=== PATIENT | male | born 1955 | race Caucasian/White ===

== ENCOUNTER 2017-01-28 11:57 | Emergency (ER) | payer BC ==
[~2017-01-28] VITALS: Ht 175.3 cm; Wt 99.7 kg
[~2017-01-28 11:57] MED LIST: ADVAIR 100/501 DISK IH; ERYTHROMYC1 APPLICAT RIGHT EYE; LIPITOR40 MG PO; MONTELUKAST SOD10 MG PO; VENTOLIN HFA18 GM
[2017-01-28 13:33] LABS: EOSINOPHIL (%) 4.5 % (0-5); EOSINOPHIL COUNT 0.3 K/uL (0-0.3); HEMATOCRIT 44.5 % (38.0-50.0); IMMATURE GRANULOCYTE (%) 0.5 % (0.0-0.7); INSTRUMENT ABS NEUTROPHIL CT 3.3 K/uL; LYMPHOCYTE COUNT 2.1 K/uL (1.0-2.8); MCH 31.8 PG (29.0-34.0); MCHC 34.6 G/DL (30.0-36.0); MCV 91.9 FL (86-99); MEAN PLAT.VOLUME 10.8 uM^3 (9.0-12.4); MONOCYTE (%) 10.1 % (3-12); MONOCYTE COUNT 0.7 K/uL (0-0.8); NEUTROPHIL (%) 51.7 % (45-76); NEUTROPHIL COUNT 3.3 K/uL (1.8-6.4); PLATELET COUNT 174 K/uL (156-360); RBC DIS.WIDTH-CV 12.5 % (11.8-14.6); RBC DIS.WIDTH-SD 41.7 % (39-53); RED BLOOD COUNT 4.84 M/uL (4.00-5.50); WHITE BLOOD COUNT 6.4 K/uL (4.1-10.2)
[2017-01-28 14:54] LABS: CHLORIDE 108 mEq/L (99-109); POTASSIUM 4.2 mEq/L (3.7-5.4); SODIUM 141 mEq/L (136-147)
[2017-01-28 14:55] LABS: GLUCOSE 98 mg/dL (70-99)
[2017-01-28 14:57] LABS: ANION GAP 7 MEQ/L (2-14)
[2017-01-28 14:59] LABS: GFR ESTIMATE (CALCULATED) > 59 mL/min/
[2017-01-28 15:00] LABS: UREA NITROGEN (BUN) 17 mg/dL (9-23)
[2017-01-28] MEDS ORDERED: AMITRIPTYLINE H10 MG PO (15:37)
[2017-01-28] MEDS ORDERED: FIORICET,ESG1 TABLET PO (15:37)
[2017-01-28 15:50] VITALS: BP 148/89
== END 2017-01-28 15:52 | disposition home or self-care (01) ==
LOC: RME 11:57 → EME 11:57 → RME 15:52
PROVIDERS: Physician Assistant
DX: R20.0 Anesthesia of skin (principal); R51 Headache; E78.5 Hyperlipidemia, unspecified; J45.909 Unspecified asthma, uncomplicated
CPT/HCPCS: 70450; 80048; 85025; 93005; 99281; 99284

== ENCOUNTER 2017-05-18 09:53 | Observation (INO) | payer BC ==
[~2017-05-18] VITALS: Ht 177.8 cm; Wt 101.1 kg
[~2017-05-18 09:53] MED LIST changes: +AMITRIPTYLINE H10 MG PO; +FIORICET,ESG1 TABLET PO; -VENTOLIN HFA18 GM; +VENTOLIN HFA18 GM IH
[2017-05-18 10:58] LABS: MCH 32.5 PG (29.0-34.0); MCHC 34.4 G/DL (30.0-36.0); MCV 94.3 FL (86-99); MEAN PLAT.VOLUME 10.9 uM^3 (9.0-12.4); PLATELET COUNT 170 K/uL (156-360); RBC DIS.WIDTH-CV 12.6 % (11.8-14.6); RBC DIS.WIDTH-SD 43.4 % (39-53); RED BLOOD COUNT 4.77 M/uL (4.00-5.50); WHITE BLOOD COUNT 7.6 K/uL (4.1-10.2)
[2017-05-18 11:06] LABS: CHLORIDE 108 mEq/L (99-109); POTASSIUM 4.5 mEq/L (3.7-5.4); SODIUM 137 mEq/L (136-147)
[2017-05-18 11:08] LABS: GLUCOSE 112 mg/dL (70-99)
[2017-05-18 11:09] LABS: ANION GAP 6 MEQ/L (2-14)
[2017-05-18 11:10] LABS: TOTAL BILIRUBIN 0.9 mg/dL (0.0-1.0)
[2017-05-18 11:11] LABS: ALKALINE PHOSPHATASE 73 IU/L (3-129)
[2017-05-18 11:12] LABS: GFR ESTIMATE (CALCULATED) > 59 mL/min/
[2017-05-18 11:13] LABS: UREA NITROGEN (BUN) 15 mg/dL (9-23)
[2017-05-18 11:17] LABS: TROP-I INTERPRETATION NEGATIVE; TROPONIN-I < 0.01 ng/mL (0.0-0.30)
[2017-05-18] MEDS ORDERED: MOBIC7.5 MG PO (13:52)
[2017-05-18] MEDS ORDERED: GABAPENTIN100 MG PO (13:52)
[2017-05-18] MEDS ORDERED: PROPRANOLOL HCL60 MG PO (13:53)
[2017-05-18] MEDS ORDERED: ALEVE220 MG PO (13:53)
[2017-05-18 15:44] VITALS: BP 155/83
[2017-05-18 17:12] LABS: TROP-I INTERPRETATION NEGATIVE; TROPONIN-I < 0.01 ng/mL (0.0-0.30)
[2017-05-18 20:31] VITALS: BP 144/81
[2017-05-18 23:31] LABS: TROP-I INTERPRETATION NEGATIVE; TROPONIN-I < 0.01 ng/mL (0.0-0.30)
[2017-05-19 00:08] VITALS: BP 131/75
[2017-05-19 04:04] VITALS: BP 158/86
[2017-05-19 05:42] LABS: HEMATOCRIT 43.3 % (38.0-50.0); MCH 32.8 PG (29.0-34.0); MCHC 34.4 G/DL (30.0-36.0); MCV 95.4 FL (86-99); MEAN PLAT.VOLUME 11.4 uM^3 (9.0-12.4); PLATELET COUNT 145 K/uL (156-360); RBC DIS.WIDTH-CV 12.9 % (11.8-14.6); RBC DIS.WIDTH-SD 45.2 % (39-53); RED BLOOD COUNT 4.54 M/uL (4.00-5.50); WHITE BLOOD COUNT 6.4 K/uL (4.1-10.2)
[2017-05-19 06:06] LABS: ANION GAP 7 MEQ/L (2-14); CHLORIDE 106 MEQ/L (99-109); GFR ESTIMATE (CALCULATED) > 59 mL/min/; GLUCOSE 104 mg/dL (70-99); POTASSIUM 4.3 MEQ/L (3.7-5.4); SAMPLE HEMOLYSIS CHECK 0; SAMPLE ICTERIC CHECK 0; SAMPLE LIPEMIA CHECK 0; SODIUM 140 MEQ/L (136-147); UREA NITROGEN (BUN) 19 mg/dL (9-23)
[2017-05-19 09:18] VITALS: BP 140/76
== END 2017-05-19 11:22 | disposition home or self-care (01) ==
LOC: EME 09:53 → EDOF 11:49 → 5WEST 11:49 → ENRESERV 11:50 → EDOF 11:55 → ENRESERV 15:16 → 5WEST 15:36
PROVIDERS: Internal Medicine; Nurse Practitioner Family
DX: R07.89 Other chest pain (principal); R00.1 Bradycardia, unspecified; E78.5 Hyperlipidemia, unspecified; J45.909 Unspecified asthma, uncomplicated; I10 Essential (primary) hypertension; G89.29 Other chronic pain; G47.00 Insomnia, unspecified; Z79.82 Long term (current) use of aspirin; R20.0 Anesthesia of skin; Z88.8 Allergy status to other drugs, medicaments and biological substances
CPT/HCPCS: 71020; 80048; 80053; 84484; 85027; 85379; 93005; 99281; 99285; G0378; J1650